=== PATIENT | male | born 1950 | race Caucasian/White ===

== ENCOUNTER 2017-11-03 08:13 | Inpatient (IN) | payer BC, OTHER ==
[2017-11-03 09:17] VITALS: BMI 21.3
--- NOTE | 2017-11-03 11:37 | HP ---
CIWA Score - CIWA Score Nausea/Vomitin Muscle Tremors: 3 Anxiety: 3 Agitation: 3 Paroxysmal Sweats: 3 Orientation: 0-Oriented Tacttile Disturbances: 1-Very Mild Itch/Numbness Auditory Disturbances: 0-None Visual Disturbances: 0-None Headache: 0-None Present CIWA-Ar Total Score: 16 Admission [facility] Chief Complaint: alcohol withdrawal sx Allergies/Adverse Reactions: Allergies Allergy/AdvReac Type Severity Reaction Status Date / Time No Known Allergies Allergy Verified 11/03/17 09:49 History of Present Illness: 67 yo m with h/o chronic alcoholism requesting inpateint detoxification from alchol because of alcohol withdrwal sx when he deos not drink - last drink 2 dasy ago. drinks every day. no h/o seizures, no DTS no psychaitiric illness, no si at this time. first treatment episode, reports he is here becasue he became dizzy at his job and they sent him for detox. Exam Limitations: No Limitations - Ebola screening Have you traveled outside of the country in the last 21 days: No (N) Have you had contact with anyone from an Ebola affected area: No Have you been sick,other than usual withdrawal symptoms: No Do you have a fever: No - Review of Systems Constitutional: Chills, Diaphoresis, Night Sweats, Changes in sleep, Unintentional Wgt. Loss EENT: reports: No Symptoms Reported Respiratory: reports: No Symptoms reported Cardiac: reports: No Symptoms Reported GI: reports: Nausea, Poor Appetite, Poor Fluid Intake, Indigestion, Abdominal cramping : reports: No Symptoms Reported Musculoskeletal: reports: No Symptoms Reported Integumentary: reports: Flushing, Sweating Neuro: reports: Headache, Numbness, Tingling, Tremors Endocrine: reports: Increased Thirst Hematology: reports: No Symptoms Reported Psychiatric: reports: Judgement Intact, Mood/Affect Appropiate, Orientated x3, Anxious, Depressed Other Systems: Reviewed and Negative Patient History - Patient Medical History Hx Anemia: No Hx Asthma: No Hx Chronic Obstructive Pulmonary Disease (COPD): No Hx Cancer: No Hx Cardiac Disorders: No Hx Congestive Heart Failure: No Hx Hypertension: No Hx Hypercholesterolemia: No Hx Pacemaker: No HX Cerebrovascular Accident: No Hx Seizures: No Hx Dementia: No Hx Diabetes: No Hx Gastrointestinal Disorders: No Hx Liver Disease: No Hx Genitourinary Disorders: No Hx Sexually Transmitted Disorders: No Hx Renal Disease (ESRD): No Hx Thyroid Disease: No Hx Human Immunodeficiency Virus (HIV): No Hx Hepatitis C: No Hx Depression: Yes Hx Suicide Attempt: No (no si at this time) Hx Bipolar Disorder: No Hx Schizophrenia: No - Patient Surgical History Past Surgical History: No Hx Neurologic Surgery: No Hx Cataract Extraction: No Hx Cardiac Surgery: No Hx Lung Surgery: No Hx Breast Surgery: No Hx Breast Biopsy: No Hx Abdominal Surgery: No Hx Appendectomy: No Hx Cholecystectomy: No Hx Genitourinary Surgery: No Hx Section: No Hx Orthopedic Surgery: No Hx Hysterectomy: No Anesthesia Reaction: No - PPD History Previous Implant?: Yes Documented Results: Negative w/o proof Implanted On Prior [facility] Admission?: No PPD to be Administered?: Yes - Reproductive History Patient is a Female of Child Bearing Age (11 -55 yrs old): No Patient : No - Smoking Cessation Smoking history: Never smoked Hx Chewing Tobacco Use: No Initiated information on smoking cessation: No 'Breaking Loose' booklet given: 11/03/17 - Substance & Tx. History Hx Alcohol Use: Yes Hx Substance Use: No Substance Use Type: Alcohol, Cocaine Hx Substance Use Treatment: No ([facility]) - Substances Abused Alcohol Route: Oral Frequency: Daily Amount used: 3 BEERS & 1/2 PT OF sCOTCH Age of first use: 16 Date of Last Use: 11/01/17 Cocaine Route: Inhalation Frequency: 3-6 times per week Amount used: 2 BAGS Age of first use: 23 Date of Last Use: 11/01/17 Admission Physical Exam BHS - Vital Signs Vital Signs: Vital Signs - 24 hr 11/03/17 09:14 Temperature 96.2 F L Pulse Rate 60 Respiratory 20 Rate Blood Pressure 152/95 - Physical General Appearance: Yes: Nourished, Appropriately Dressed, Disheveled, Mild Distress, Thin, Tremorous, Irritable, Sweating, Anxious HEENTM: Yes: Within Normal Limits, EOMI, Hearing grossly Normal, Normal ENT Inspection, Normocephalic, Normal Voice, ERIN, Pharynx Normal Respiratory: Yes: Within Normal Limits, Chest Non-Tender, Lungs Clear, Normal Breath Sounds, No Respiratory Distress, No Accessory Muscle Use Neck: Yes: Within Normal Limits, No masses,lesions,Nodules, Supple, Trachea in good position Breast: Yes: Breast Exam Deferred Cardiology: Yes: Within Normal Limits, Regular Rhythm, Regular Rate, S1, S2 Abdominal: Yes: Within Normal Limits, Normal Bowel Sounds, Non Tender, Flat Genitourinary: Yes: Within Normal Limits Back: Yes: Within Normal Limits, Normal Inspection Musculoskeletal: Yes: Within Normal Limits, full range of Motion, Gait Steady, Pelvis Stable Extremities: Yes: Normal Capillary Refill, Normal Inspection, Normal Range of Motion, Tremors Neurological: Yes: imaging analyst II-XII NML intact, Fully Oriented, Alert, Motor Strength 5/5, Normal Response, Depressed Affect Integumentary: Yes: Normal Color, Warm, Clammy, Diaphoresis Lymphatic: Yes: Within Normal Limits - Addiitonal Findings: alcohol withdrawal sx - Diagnostic (1) Alcohol dependence with uncomplicated withdrawal Current Visit: Yes Status: Acute (2) Depression Current Visit: Yes Status: Acute (3) Dehydration Current Visit: Yes Status: Acute (4) Hypertension Current Visit: Yes Status: Acute (5) Cocaine dependence Current Visit: Yes Status: Acute (6) Weight loss Current Visit: Yes Status: Acute Cleared for Admission [facility] - Detox or Rehab [facility] Level of Care: Medically Managed Detox Regimen/Protocol: Librium [facility] Breath Alcohol Content Breath Alcohol Content: 0 Urine Drug Screen - Results Drug Screen Negative: No Urine Drug Screen Results: ALLI-Cocaine
[2017-11-03] MEDS ORDERED: MAGNESIUM HYDROX 2400MG/30ML ORAL SUSPENSION 30 ML CUP PO PRN (11:39)
[2017-11-03] MEDS ORDERED: MENTHOL/PHENOL 1 EACH UD MM PRN (11:39)
[2017-11-03] MEDS ORDERED: ACETAMINOPHEN 325 MG TABLET (FP) PO PRN (11:39)
[2017-11-03] MEDS ORDERED: guaiFENesin/D-METHORPHAN HB 10 ML UNIT-DOSE CUPS PO PRN (11:39)
[2017-11-03] MEDS ORDERED: P-EPHED 60MG/TRIPROLIDI 2.5MG TABLET PO PRN (11:39)
[2017-11-03] MEDS ORDERED: hydrOXYzine PAMOATE 50 MG CAPSULE (FP) PO PRN (11:39)
[2017-11-03] MEDS ORDERED: chlordiazePOXIDE HCL 25 MG CAPSULE PO PRN (11:39)
[2017-11-03] MEDS ORDERED: MAG HYDROX/AL HYDROX/SIMETH 30 ML UNIT-DOSE CUP PO PRN (11:39)
[2017-11-03] MEDS ORDERED: LOPERAMIDE HCL 2 MG CAPSULE PO PRN (11:39)
[2017-11-03] MEDS ORDERED: IBUPROFEN 400 MG TABLET (FP) PO PRN (11:39)
[2017-11-03] MEDS ORDERED: MAGNESIUM CITRATE 300 ML BOTTLE PO PRN (11:39)
[2017-11-03] MEDS ORDERED: chlordiazePOXIDE HCL 25 MG CAPSULE PO ONE (11:57)
--- NOTE | 2017-11-03 14:39 | CONSULT ---
[facility] Psychiatric Consult - Data Date of interview: 11/03/17 Admission source: [facility] Identifying data: Pt. is a 67 year old male, father of two and currently employed. [facility] Pt. admitted to for alcohol dependence. Substance Abuse History: Following information confirmed with Mr. Peralta: - Substance & Tx. History. Hx Alcohol Use: Yes. Hx Substance Use: No. Substance Use Type: Alcohol, Cocaine. Hx Substance Use Treatment: No ([facility] episode). - Substances Abused. Alcohol. Route: Oral. Frequency: Daily. Amount used: 3 BEERS & 1/2 PT OF sCOTCH. Age of first use: 16. Date of Last Use: 11/01/17. Cocaine. Route: Inhalation. Frequency: 3-6 times per week. Amount used: 2 BAGS. Age of first use: 23. Date of Last Use: Medical History: Denies. Psychiatric History: Pt. denies h/o psychiatric hospitalizations, outpatient care, and suicide attempts. Physical/Sexual Abuse/Trauma History: Denies. Mental Status Exam - Mental Status Exam Alert and Oriented to: Time, Place, Person Cognitive Function: Good Patient Appearance: Unkempt Mood: Hopeful, Happy Affect: Appropriate Patient Behavior: Cooperative Speech Pattern: Appropriate Voice Loudness: Normal Thought Process: Goal Oriented Thought Disorder: Not Present Hallucinations: Denies Suicidal Ideation: Denies Homicidal Ideation: Denies Insight/Judgement: Poor Sleep: Fair Appetite: Good Muscle strength/Tone: Normal Gait/Station: Other (Did not observe patient's gait.) Psychiatric Findings - Problem List ([place] 1, 2,3) (1) Alcohol dependence with uncomplicated withdrawal Current Visit: Yes Status: Acute (2) Cocaine dependence Current Visit: Yes Status: Acute - Initial Treatment Plan Initial Treatment Plan: Psychoeducation provided. Detoxification in progress. Observation.
[2017-11-03] MEDS: METHYL SALICYLATE/MENTHOL OINT 30 GM TUBE TP SCH (15:59)
[2017-11-03] MEDS: chlordiazePOXIDE HCL 25 MG CAPSULE PO SCH ×2 (17:40→22:24)
[2017-11-03] MEDS: THIAMINE HCL 100 MG TABLET (FP) PO SCH (22:24)
[2017-11-03 23:40] LABS: URINE APPEARANCE CLOUDY; URINE BILIRUBIN NEGATIVE (NEGATIVE); URINE BLOOD 1+ (NEGATIVE); URINE COLOR YELLOW; URINE GLUCOSE (UA) NEGATIVE (NEGATIVE); URINE KETONE NEGATIVE (NEGATIVE); URINE LEUK ESTERASE NEGATIVE (NEGATIVE); URINE NITRITE NEGATIVE (NEGATIVE); URINE PROTEIN NEGATIVE (NEGATIVE); URINE UROBILINOGEN NEGATIVE mg/dL (0.2-1.0)
[2017-11-03 23:45] LABS: EPI CELLS RARE /HPF (FEW); URINE BACTERIA RARE /hpf (NONE SEEN); URINE MUCUS RARE
[2017-11-04] MEDS: chlordiazePOXIDE HCL 25 MG CAPSULE PO SCH ×4 (05:20→22:25)
[2017-11-04] MEDS: PRENATAL VITAMINS W/ FOLIC ACID TABLET (FP) PO SCH (10:19)
[2017-11-04] MEDS: METHYL SALICYLATE/MENTHOL OINT 30 GM TUBE TP SCH (10:19)
[2017-11-04 10:23] LABS: HEMATOCRIT 45.6 % (35.4-49); HEMOGLOBIN 14.6 GM/dL (11.7-16.9); MCH 28.6 pg (25.7-33.7); MCHC 32.1 g/dl (32.0-35.9); MEAN CELL VOLUME 89.2 fl (80-96); MEAN PLT VOLUME 6.9 fl (7.5-11.1); PLATELET COUNT 407 K/MM3 (134-434); RBC 5.12 M/mm3 (4.00-5.60); RDW 13.8 % (11.9-15.9); WHITE BLOOD COUNT 5.3 K/mm3 (4.0-10.0)
[2017-11-04 10:40] LABS: CHLORIDE 102 mmol/L (98-107); POTASSIUM 4.8 mmol/L (3.5-5.1); SODIUM 139 mmol/L (136-145)
--- NOTE | 2017-11-04 10:40 | PN ---
[facility] CIWA - CIWA Score Nausea/Vomitin-Mild Nausea/No Vomiting Muscle Tremors: 4-Moderate,w/Arms Extend Anxiety: 4-Mod. Anxious/Guarded Agitation: 4-Moderately Restless Paroxysmal Sweats: 1-Minimal Palms Moist Orientation: 0-Oriented Tacttile Disturbances: 0-None Auditory Disturbances: 0-None Visual Disturbances: 0-None Headache: 0-None Present CIWA-Ar Total Score: 14 BHS Progress Note (SOAP) Subjective: sweat tremor anxiety restlessness can not sleep throughout the night Objective: 11/04/17 10:39 Vital Signs Temperature 97.5 F L 11/04/17 06:00 Pulse Rate 57 L 11/04/17 06:00 Respiratory Rate 18 11/04/17 06:00 Blood Pressure 134/79 11/04/17 06:00 O2 Sat by Pulse Oximetry (%) Laboratory Last Values WBC 5.3 K/mm3 (4.0-10.0) 11/04/17 06:00 RBC 5.12 M/mm3 (4.00-5.60) 11/04/17 06:00 Hgb 14.6 GM/dL (11.7-16.9) 11/04/17 06:00 Hct 45.6 % (35.4-49) 11/04/17 06:00 MCV 89.2 fl (80-96) 11/04/17 06:00 MCH 28.6 pg (25.7-33.7) 11/04/17 06:00 MCHC 32.1 g/dl (32.0-35.9) 11/04/17 06:00 RDW 13.8 % (11.9-15.9) 11/04/17 06:00 Plt Count 407 K/MM3 (134-434) 11/04/17 06:00 MPV 6.9 fl (7.5-11.1) L 11/04/17 06:00 Urine Color Yellow 11/03/17 23:25 Urine Appearance Cloudy 11/03/17 23:25 Urine pH 6.0 (5.0-8.0) 11/03/17 23:25 Ur Specific [place] 1.023 (1.001-1.035) 11/03/17 23:25 Urine Protein Negative (NEGATIVE) 11/03/17 23:25 Urine Glucose (UA) Negative (NEGATIVE) 11/03/17 23:25 Urine Ketones Negative (NEGATIVE) 11/03/17 23:25 Urine Blood 1+ (NEGATIVE) H 11/03/17 23:25 Urine Nitrite Negative (NEGATIVE) 11/03/17 23:25 Urine Bilirubin Negative (NEGATIVE) 11/03/17 23:25 Urine Urobilinogen Negative mg/dL (0.2-1.0) 11/03/17 23:25 Ur Leukocyte Esterase Negative (NEGATIVE) 11/03/17 23:25 Urine WBC (Auto) 1 /hpf (3-5) 11/03/17 23:25 Urine RBC (Auto) 8 /hpf (0-3) 11/03/17 23:25 Ur Epithelial Cells Rare /HPF (FEW) 11/03/17 23:25 Urine Bacteria Rare /hpf (NONE SEEN) 11/03/17 23:25 Urine Mucus Rare 11/03/17 23:25 lab noted Assessment: 11/04/17 10:40 withdrawal sx Plan: continue detox
[2017-11-04 10:46] LABS: ALBUMIN 4.3 g/dl (3.4-5.0); ALK PHOS 83 U/L (45-117); ANION GAP 5 (8-16); BILIRUBIN,TOTAL 0.7 mg/dL (0.2-1.0); BLOOD UREA NITROGEN 22 mg/dL (7-18); CO2 32 mmol/L (21-32); CREATININE 0.8 mg/dL (0.7-1.3); GLUCOSE,RANDOM 107 mg/dL (74-106); SGOT/AST 19 U/L (15-37); SGPT/ALT 33 U/L (12-78); TOT PROT 8.2 g/dl (6.4-8.2)
--- NOTE | 2017-11-04 11:06 | EKG ---
Test Reason : Blood Pressure : / mmHG Vent. Rate : 059 BPM Atrial Rate : 059 BPM P-R Int : 166 ms QRS Dur : 110 ms QT Int : 414 ms P-R-T Axes : 052 -10 038 degrees QTc Int : 409 ms SINUS BRADYCARDIA VOLTAGE CRITERIA FOR LEFT VENTRICULAR HYPERTROPHY ABNORMAL ECG NO PREVIOUS ECGS AVAILABLE Confirmed by RAJESH MUNOZ, MARIZOL ([id number]) on 11/04/2017 11:05:47 AM Referred By: Confirmed By:MARIZOL MENA MD
[2017-11-04] MEDS: THIAMINE HCL 100 MG TABLET (FP) PO SCH (22:25)
[2017-11-05] MEDS: chlordiazePOXIDE HCL 25 MG CAPSULE PO SCH ×2 (05:18→10:07)
[2017-11-05] MEDS: PRENATAL VITAMINS W/ FOLIC ACID TABLET (FP) PO SCH (10:06)
[2017-11-05] MEDS: METHYL SALICYLATE/MENTHOL OINT 30 GM TUBE TP SCH (10:06)
--- NOTE | 2017-11-05 13:06 | PN ---
S CIWA - CIWA Score Nausea/Vomitin Muscle Tremors: 3 Anxiety: 3 Agitation: 2 Paroxysmal Sweats: 1-Minimal Palms Moist Orientation: 0-Oriented Tacttile Disturbances: 1-Very Mild Itch/Numbness Auditory Disturbances: 1-Very Mild Visual Disturbances: 0-None Headache: 2-Mild CIWA-Ar Total Score: 16 BHS Progress Note (SOAP) Subjective: ALERT,IRRITABLE,ANXIOUS,INTERRUPTED SLEEP,TREMOR Objective: 11/05/17 13:04 Vital Signs Temperature 96.8 F L 11/05/17 10:09 Pulse Rate 65 11/05/17 10:09 Respiratory Rate 18 11/05/17 10:09 Blood Pressure 115/77 11/05/17 10:09 O2 Sat by Pulse Oximetry (%) EKG SINUS BRADYCARDIA 59/MIN NO CHEST PAIN,NO SOB,NO DIZZINESS Laboratory Last Values WBC 5.3 K/mm3 (4.0-10.0) 11/04/17 06:00 RBC 5.12 M/mm3 (4.00-5.60) 11/04/17 06:00 Hgb 14.6 GM/dL (11.7-16.9) 11/04/17 06:00 Hct 45.6 % (35.4-49) 11/04/17 06:00 MCV 89.2 fl (80-96) 11/04/17 06:00 MCH 28.6 pg (25.7-33.7) 11/04/17 06:00 MCHC 32.1 g/dl (32.0-35.9) 11/04/17 06:00 RDW 13.8 % (11.9-15.9) 11/04/17 06:00 Plt Count 407 K/MM3 (134-434) 11/04/17 06:00 MPV 6.9 fl (7.5-11.1) L 11/04/17 06:00 Sodium 139 mmol/L (136-145) 11/04/17 06:00 Potassium 4.8 mmol/L (3.5-5.1) 11/04/17 06:00 Chloride 102 mmol/L (98-107) 11/04/17 06:00 Carbon Dioxide 32 mmol/L (21-32) 11/04/17 06:00 Anion Gap 5 (8-16) L 11/04/17 06:00 BUN 22 mg/dL (7-18) H 11/04/17 06:00 Creatinine 0.8 mg/dL (0.7-1.3) 11/04/17 06:00 Creat Clearance w eGFR > 60 (>60) 11/04/17 06:00 Random Glucose 107 mg/dL (74-106) H 11/04/17 06:00 Calcium 9.0 mg/dL (8.5-10.1) 11/04/17 06:00 Total Bilirubin 0.7 mg/dL (0.2-1.0) 11/04/17 06:00 AST 19 U/L (15-37) 11/04/17 06:00 ALT 33 U/L (12-78) 11/04/17 06:00 Alkaline Phosphatase 83 U/L (45-117) 11/04/17 06:00 Total Protein 8.2 g/dl (6.4-8.2) 11/04/17 06:00 Albumin 4.3 g/dl (3.4-5.0) 11/04/17 06:00 Urine Color Yellow 11/03/17 23:25 Urine Appearance Cloudy 11/03/17 23:25 Urine pH 6.0 (5.0-8.0) 11/03/17 23:25 Ur Specific [place] 1.023 (1.001-1.035) 11/03/17 23:25 Urine Protein Negative (NEGATIVE) 11/03/17 23:25 Urine Glucose (UA) Negative (NEGATIVE) 11/03/17 23:25 Urine Ketones Negative (NEGATIVE) 11/03/17 23:25 Urine Blood 1+ (NEGATIVE) H 11/03/17 23:25 Urine Nitrite Negative (NEGATIVE) 11/03/17 23:25 Urine Bilirubin Negative (NEGATIVE) 11/03/17 23:25 Urine Urobilinogen Negative mg/dL (0.2-1.0) 11/03/17 23:25 Ur Leukocyte Esterase Negative (NEGATIVE) 11/03/17 23:25 Urine WBC (Auto) 1 /hpf (3-5) 11/03/17 23:25 Urine RBC (Auto) 8 /hpf (0-3) 11/03/17 23:25 Ur Epithelial Cells Rare /HPF (FEW) 11/03/17 23:25 Urine Bacteria Rare /hpf (NONE SEEN) 11/03/17 23:25 Urine Mucus Rare 11/03/17 23:25 RPR Titer Nonreactive (NONREACTIVE) 11/04/17 06:00 Assessment: 11/05/17 13:05 WITHDRAWAL SYMPTOM Plan: CONTINUE DETOX
[2017-11-05] MEDS: chlordiazePOXIDE 5 MG CAPSULE PO SCH ×2 (17:33→22:36)
[2017-11-05] MEDS: THIAMINE HCL 100 MG TABLET (FP) PO SCH (22:36)
[2017-11-06] MEDS: chlordiazePOXIDE 5 MG CAPSULE PO SCH ×2 (05:18→10:07)
[2017-11-06] MEDS: PRENATAL VITAMINS W/ FOLIC ACID TABLET (FP) PO SCH (10:07)
[2017-11-06] MEDS: METHYL SALICYLATE/MENTHOL OINT 30 GM TUBE TP SCH (10:08)
--- NOTE | 2017-11-06 11:30 | PN ---
S Progress Note (SOAP) Subjective: ALERT,IRRITABLE,ANXIOUS,INTERRUPTED SLEEP Objective: 11/06/17 11:29 Vital Signs Temperature 95.9 F L 11/06/17 10:08 Pulse Rate 61 11/06/17 10:08 Respiratory Rate 18 11/06/17 10:08 Blood Pressure 134/78 11/06/17 10:08 O2 Sat by Pulse Oximetry (%) Assessment: 11/06/17 11:29 WITHDRAWAL SYMPTOM Plan: CONTINUE DETOX,DISCHARGE IN AM
[2017-11-06] MEDS: chlordiazePOXIDE HCL 10 MG CAPSULE PO SCH ×2 (17:27→22:16)
[2017-11-06] MEDS: THIAMINE HCL 100 MG TABLET (FP) PO SCH (22:16)
[2017-11-07] MEDS: chlordiazePOXIDE HCL 10 MG CAPSULE PO SCH (05:12)
[2017-11-07 10:11] VITALS: BP 142/49; PULSE 69; TEMP 96.8
[2017-11-07] MEDS: PRENATAL VITAMINS W/ FOLIC ACID TABLET (FP) PO SCH (11:10)
[2017-11-07] MEDS: METHYL SALICYLATE/MENTHOL OINT 30 GM TUBE TP SCH (11:10)
--- NOTE | 2017-11-07 11:34 | DS ---
[facility] Detox Discharge Summary Admission Date: 11/03/17 Discharge Date: 11/07/17 - History Present History: Alcohol Dependence - Physical Exam Results Vital Signs: Vital Signs Temperature 96.8 F L 11/07/17 10:11 Pulse Rate 69 11/07/17 10:11 Respiratory Rate 16 11/07/17 10:11 Blood Pressure 142/49 11/07/17 10:11 O2 Sat by Pulse Oximetry (%) Pertinent Admission Physical Exam Findings: withdrawal sx Vital Signs Temperature 96.8 F L 11/07/17 10:11 Pulse Rate 69 11/07/17 10:11 Respiratory Rate 16 11/07/17 10:11 Blood Pressure 142/49 11/07/17 10:11 O2 Sat by Pulse Oximetry (%) Laboratory Last Values WBC 5.3 K/mm3 (4.0-10.0) 11/04/17 06:00 RBC 5.12 M/mm3 (4.00-5.60) 11/04/17 06:00 Hgb 14.6 GM/dL (11.7-16.9) 11/04/17 06:00 Hct 45.6 % (35.4-49) 11/04/17 06:00 MCV 89.2 fl (80-96) 11/04/17 06:00 MCH 28.6 pg (25.7-33.7) 11/04/17 06:00 MCHC 32.1 g/dl (32.0-35.9) 11/04/17 06:00 RDW 13.8 % (11.9-15.9) 11/04/17 06:00 Plt Count 407 K/MM3 (134-434) 11/04/17 06:00 MPV 6.9 fl (7.5-11.1) L 11/04/17 06:00 Sodium 139 mmol/L (136-145) 11/04/17 06:00 Potassium 4.8 mmol/L (3.5-5.1) 11/04/17 06:00 Chloride 102 mmol/L (98-107) 11/04/17 06:00 Carbon Dioxide 32 mmol/L (21-32) 11/04/17 06:00 Anion Gap 5 (8-16) L 11/04/17 06:00 BUN 22 mg/dL (7-18) H 11/04/17 06:00 Creatinine 0.8 mg/dL (0.7-1.3) 11/04/17 06:00 Creat Clearance w eGFR > 60 (>60) 11/04/17 06:00 Random Glucose 107 mg/dL (74-106) H 11/04/17 06:00 Calcium 9.0 mg/dL (8.5-10.1) 11/04/17 06:00 Total Bilirubin 0.7 mg/dL (0.2-1.0) 11/04/17 06:00 AST 19 U/L (15-37) 11/04/17 06:00 ALT 33 U/L (12-78) 11/04/17 06:00 Alkaline Phosphatase 83 U/L (45-117) 11/04/17 06:00 Total Protein 8.2 g/dl (6.4-8.2) 11/04/17 06:00 Albumin 4.3 g/dl (3.4-5.0) 11/04/17 06:00 Urine Color Yellow 11/03/17 23:25 Urine Appearance Cloudy 11/03/17 23:25 Urine pH 6.0 (5.0-8.0) 11/03/17 23:25 Ur Specific [place] 1.023 (1.001-1.035) 11/03/17 23:25 Urine Protein Negative (NEGATIVE) 11/03/17 23:25 Urine Glucose (UA) Negative (NEGATIVE) 11/03/17 23:25 Urine Ketones Negative (NEGATIVE) 11/03/17 23:25 Urine Blood 1+ (NEGATIVE) H 11/03/17 23:25 Urine Nitrite Negative (NEGATIVE) 11/03/17 23:25 Urine Bilirubin Negative (NEGATIVE) 11/03/17 23:25 Urine Urobilinogen Negative mg/dL (0.2-1.0) 11/03/17 23:25 Ur Leukocyte Esterase Negative (NEGATIVE) 11/03/17 23:25 Urine WBC (Auto) 1 /hpf (3-5) 11/03/17 23:25 Urine RBC (Auto) 8 /hpf (0-3) 11/03/17 23:25 Ur Epithelial Cells Rare /HPF (FEW) 11/03/17 23:25 Urine Bacteria Rare /hpf (NONE SEEN) 11/03/17 23:25 Urine Mucus Rare 11/03/17 23:25 RPR Titer Nonreactive (NONREACTIVE) 11/04/17 06:00 lab noted - Treatment Hospital Course: Detox Protocol Followed, Detoxed Safely, Responded well, Discharged Condition Good, Rehab Referral Accepted Patient has Accepted a Rehab Referral to: as per counselor arranged - Medication Discharge Medications: Ambulatory Orders Menthol [B[place] Vanishing Scent] 57 gm TP PRN PRN 11/03/17 - Diagnosis (1) Alcohol dependence with uncomplicated withdrawal Status: Acute - AMA Did Patient Leave Against Medical Advice: No
== END 2017-11-07 09:40 | disposition home or self-care (01) | DRG 897 ==
LOC: YASAS 08:13 → Y6N 11:54
PROVIDERS: ADMIT Internal Medicine; ATTEND Internal Medicine
PROC: HZ2ZZZZ Detoxification Services for Substance Abuse Treatment (ICD-10-PCS; principal; 2017-11-03)
DX: F10.230 Alcohol dependence with withdrawal, uncomplicated (principal); F14.20 Cocaine dependence, uncomplicated; F32.9 Major depressive disorder, single episode, unspecified; I10 Essential (primary) hypertension; R63.4 Abnormal weight loss; Z68.21 Body mass index [BMI] 21.0-21.9, adult
CPT/HCPCS: 36415; 80053; 81003; 81015; 85027; 86593; 93005; 93010